=== PATIENT | female | born 1995 ===

== ENCOUNTER 2023-06-15 15:35 | Emergency (ER) | payer OTHER, SELFPAY ==
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
--- NOTE | ~2023-06-15 | CT_ITS ---
EXAM: CT HEAD WITHOUT CONTRAST CT CERVICAL SPINE INDICATION: Reason for Exam neck pain TECHNIQUE: A noncontrast CT scan was performed from the skull base to the vertex. A noncontrast CT scan of the cervical spine was performed from the base of the skull through T1 at 2.5 mm and 0.625 mm collimation. Coronal and sagittal reformats were obtained at the acquisition workstation. This CT examination was performed using dose optimization techniques as appropriate, variously including the following: * Automated exposure control * Adjustment of mA and/or kV according to patient size (this includes techniques or standardized protocols for targeted exams where dose is matched to indication/reason for exam; i.e. extremities or head) * Use of iterative reconstruction technique Dose length product is 670 mGy-cm. COMPARISON: None FINDINGS: Head: There is no evidence of acute intracranial hemorrhage or territorial infarction. No abnormal mass effect or midline shift is seen. Fair to white matter differentiation is well preserved. No extra-axial fluid collections are identified. The ventricles are normal in size. No abnormal attenuation in the brain parenchyma. No acute calvarial fracture.. Paranasal sinuses and mastoid air cells are well-aerated. Cervical Spine: The atlantooccipital and atlantoaxial articulations remain articulation is maintained. There is slight reversal of the spinal curvature. Predens space is maintained.. The posterior alignment is maintained.. 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 There is fusion across the facet joints as well. No acute fracture is identified. In the more inferior aspect of the cervical spine, the disc spaces are maintained. The central canal is grossly maintained. No significant prevertebral soft tissue swelling. No suspicious start findings. Visualized lung apices are clear. CT/CT cervical spine wo IV con IMPRESSION: No CT evidence of acute intracranial hemorrhage or edematous acute infarction. 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 No CT evidence of acute fracture or malalignment.
[2023-06-15 15:45] VITALS: BP 114/73; PULSE 85; RESP 18; TEMP 36.9; O2SAT 98; BMI 25.1
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
[2023-06-15 16:22] LABS: UPreg QC Valid YES; Urine Pregnancy NEGATIVE (NEGATIVE)
[2023-06-15] MEDS: NaPROXEN 500 MG TABLET PO (16:51)
== END 2023-06-15 18:21 | disposition home or self-care (01) ==
PROVIDERS: Registered Nurse Emergency; Emergency Provider Emergency Medicine; PCP Nurse Practitioner Family
DX: S13.4XXA Sprain of ligaments of cervical spine, initial encounter (principal); S06.0X0A Concussion without loss of consciousness, initial encounter; M54.2 Cervicalgia; M54.50 Low back pain, unspecified; R51.9 Headache, unspecified; M54.16 Radiculopathy, lumbar region; V43.52XA Car driver injured in collision with other type car in traffic accident, initial encounter; Y93.9 Activity, unspecified; Y92.410 Unspecified street and highway as the place of occurrence of the external cause; Y99.8 Other external cause status
CPT/HCPCS: 70450; 72100; 72125; 81025; 99283; 99284